=== PATIENT | female | born 1985 | race Caucasian/White ===

== ENCOUNTER 2023-10-20 01:08 | Observation (INO) ==
[2023-10-20 01:19] VITALS: BMI 42.0
--- NOTE | 2023-10-20 02:03 | ED.ABDFE ---
HPI Time Seen Time Seen by Provider: 10/20/23 02:02 PCP Primary Care Physician: isaac HPI Comment HPI Comment: Fever, chills, cough times one week. Abdominal pain, vomiting and rib pain that started today. Complaint Doctors Chief Complaint Comments: Patient is 38yr old female in ER with fever, cough and chills times one week. Now patient having rib pain, nausea and vomiting. denies diarrhea and dysuria. Patient is weak and tired and abdomen is turning. she is worse tonight. Chief Complaint:: pt states she has been sick for about a week with fever, chills, and coughing, today her chest/ribs started to hurt and she started having abdominal pain.She states it feels like her stomach is turning.She has been vomiting today. Self Treatment fo Chief Complaint: [email or web address] COVID-19 Coronavirus risk:travel/contact w/high risk person: No Has patient experienced Coronavirus symptoms: No Reviewed Nurses Notes Review: Yes Source History Provided: Patient Mode of arrival Mode of Arrival: Ambulatory Timing Onset of Chief Complaint: 10/20/23 PMH PMH Past Medical History: No Past Surgical History: Yes Surgical History: and Cholecystectomy Family History History of Family Medical Conditions: Yes Family Medical History: Diabetes Mellitus, Cancer, [place], Coronary Artery Disease, Heart Failure and Hypertension Social History Type of Tobacco Use: None Alcohol Use: None Do you use any recreational Drugs:: No Lives With: Spouse Lives Where: Home Travel Risk Coronavirus risk:travel/contact w/high risk person: No Has patient experienced Coronavirus symptoms: No Infectious screening In the last 2 months have you had wt loss of >10#?: NO Have you had fever, night sweats or hemotysis?: No Have you traveled outside the country in the last 6 months?: No Isolation: Standard ROS Review of Systems Constitutional: Weakness and Fatigue; negative Fever Eyes: No Symptoms Reported ENTM: No Symptoms Reported; negative Nose Discharge or Nose Congestion Respiratoy: Moist Cough; negative Short of Breath or Wheezing Cardiovascular: No Symptoms Reported; negative Chest Pain Gastrointestinal/Abdominal: Abdominal Pain, Nausea and Vomiting Genitourinary: No Symptoms Reported; negative Dysuria Neurological: Weakness; negative Headache or Dizziness Musculoskeletal: No Symptoms Reported; negative Muscle Pain Integumentary: Dryness; negative Rash or Juandice Hematologic/Lymphatic: No Symptoms Reported Endocrine: Increased Thirst; negative Increased Urine Psychiatric: No Symptoms Reported All Other Systems: Reviewed and Negative PE Vital Signs Vitals: Vital Signs Temperature 97.5 F Pulse Rate 89 Pulse Rate 133 Respiratory Rate 22 Respiratory Rate 22 Respiratory Rate 20 Blood Pressure 114/59 Blood Pressure 137/85 O2 Sat by Pulse Oximetry 94 O2 Sat by Pulse Oximetry 96 General Limitations: No Limitations General Appearance: Alert and In No Apparent Distress Head Head Exam: Normal Inspection Eyes Eye exam: Normal Appearance; negative Scleral Icterus or Conjunctival Injection ENT ENT Exam: Normal Exam, Normal Oropharynx, Normal External Ear Exam and TM's Normal Bilaterally Neck Neck Exam: Normal Inspection and Trachea Midline; negative Tenderness Chest Chest Inspection: Normal Inspection and Symmetric Chest Wall Rise; negative Ten derness Respiratory Respiratory Exam: Normal Lung Sounds Bilat and Accessory Muscle Use; negative Chest Wall Tenderness Cardiovascular Cardiovascular Exam: Regular Rate, Normal Rhythm and Normal Heart Sounds; negative Systolic Murmur or Diastolic Murmur Abdominal Exam Abdominal Exam: Normal Bowel Sounds, Soft and Tenderness Abdominal Tenderness: Diffuse and Moderate Rectal Rectal Exam: Deferred Back Back Exam: Normal Inspection; negative (R) CVA Tenderness or (L) CVA Tenderness External Exam: Female: Deferred : Speculum Exam (Female): Deferred : Bimanual Exam (female): Deferred Neurologic Neurological Exam: Alert and Oriented X3; negative Motor Sensory Deficit Psychiatric Psychiatric Exam: Normal Affect and Normal Mood Skin Skin Exam: Warm and Dry MDM Differential Diagnosis Differential Diagnosis- Considerations may include:: Bowel Obstruction, Constipation, Diverticular disease, Gastroenteritis, Inflammatory BD, Pancreatitis, Trauma, intra-abdominal and Urinary tract infection COURSE Treatment Treatment: See orders done while patient was in ER. Labs and CT discussed. possible early small bowel obstruction. Surgery consult obtained. patient will be admitted to hospital for further evaluation. Consultation Consultation Comments: Surgery consult to Dr. PULIDO. He will admit patient. Education/Counseling Education/Counseling: Patient and Family Educated On: Diagnosis ROR Labs Reviewed Laboratory Results Reviewed?: Yes 10/20/23 02:30 10/20/23 02:30 Laboratory: WBC 13.5 X10^3/uL (3.6-10.0) H 10/20/23 02:30 RBC 4.42 X10^6/uL (3.5-5.4) 10/20/23 02:30 Hgb 13.7 g/dL (12.0-16.0) 10/20/23 02:30 Hct 40.7 % (36.0-47.0) 10/20/23 02:30 MCV 92.0 fL (80.0-100.0) 10/20/23 02:30 MCH 31.0 pg (27.0-34.0) 10/20/23 02:30 MCHC 33.7 g/dL (33.0-35.0) 10/20/23 02:30 RDW 13.2 % (11.6-16.5) 10/20/23 02:30 Plt Count 241 X10^3/uL (150.0-450.0) 10/20/23 02:30 MPV 8.6 fL (7.4-11.0) 10/20/23 02:30 Neut % (Auto) 82.7 % (42.0-75.0) H 10/20/23 02:30 Lymph % (Auto) 8.5 % (21.0-51.0) L 10/20/23 02:30 [place] % (Auto) 8.2 % (0.0-13.0) 10/20/23 02:30 Eos % (Auto) 0.4 % (0.9-2.9) L 10/20/23 02:30 Baso % (Auto) 0.2 % (0.2-1.0) 10/20/23 02:30 Neut # (Auto) 11.2 x10^3/uL (2.2-4.8) H 10/20/23 02:30 Lymph # (Auto) 1.1 X10^3/uL (1.3-2.9) L 10/20/23 02:30 [place] # (Auto) 1.1 x10^3/uL (0.3-0.8) H 10/20/23 02:30 Eos # (Auto) 0.1 x10^3/uL (0.0-0.2) 10/20/23 02:30 Baso # (Auto) 0.0 X10^3/uL (0.0-0.1) 10/20/23 02:30 Absolute Nucleated RBC 0.0 /100WBC 10/20/23 02:30 Sodium 143 mmol/L (136-145) 10/20/23 02:30 Corrected Sodium 144 mmol/L (136-145) 10/20/23 02:30 Potassium 3.9 mmol/L (3.5-5.1) 10/20/23 02:30 Chloride 106 mmol/L (98-107) 10/20/23 02:30 Carbon Dioxide 23.8 mmol/L (21-32) 10/20/23 02:30 BUN 13 mg/dL (7-18) 10/20/23 02:30 Creatinine 0.82 mg/dL (0.55-1.02) 10/20/23 02:30 Est GFR (MDRD) Af Amer > 60 (>60) 10/20/23 02:30 Est GFR (MDRD) Non-Af > 60 (>60) 10/20/23 02:30 Glucose 131 mg/dL (65-99) H 10/20/23 02:30 Calcium 8.2 mg/dL (8.5-10.1) L 10/20/23 02:30 Corrected Calcium 8.8 mg/dL (8.5-10.1) 10/20/23 02:30 Total Bilirubin 0.30 mg/dL (0.2-1.0) 10/20/23 02:30 AST 85 Units/L (15-37) H 10/20/23 02:30 ALT 76 Units/L (12-78) 10/20/23 02:30 Alkaline Phosphatase 80 Units/L (46-116) 10/20/23 02:30 Creatine Kinase 38 Units/L (26-192) 10/20/23 02:30 Troponin I High Sens < 4.0 ng/L (4.0-60.0) L 10/20/23 02:30 Total Protein 6.9 g/dL (6.4-8.2) 10/20/23 02:30 Albumin 3.3 g/dL (3.4-5.0) L 10/20/23 02:30 Globulin 3.6 g/dL (2.5-4.5) 10/20/23 02:30 Albumin/Globulin Ratio 0.9 Ratio (1.1-2.1) L 10/20/23 02:30 Amylase 47 Units/L (25-115) 10/20/23 02:30 Lipase 28 Units/L (16-77) 10/20/23 02:30 Specimen Type Clean catch urine 10/20/23 05:20 Urine Color Yellow (YELLOW) 10/20/23 05:20 Urine Appearance Clear (CLEAR) 10/20/23 05:20 Urine pH 6.0 (5.0 - 8.0) 10/20/23 05:20 Ur Specific [place] 1.020 (1.000-1.030) 10/20/23 05:20 Urine Protein 1+ (NEGATIVE) 10/20/23 05:20 Urine Glucose (UA) Negative (NEGATIVE) 10/20/23 05:20 Urine Ketones Negative (NEGATIVE) 10/20/23 05:20 Urine Blood Negative (NEGATIVE) 10/20/23 05:20 Urine Nitrite Negative (NEGATIVE) 10/20/23 05:20 Urine Bilirubin Negative (NEGATIVE) 10/20/23 05:20 Urine Urobilinogen Normal (NORMAL) 10/20/23 05:20 Ur Leukocyte Esterase Negative (NEGATIVE) 10/20/23 05:20 Urine RBC 0-2 /HPF (0-3) 10/20/23 05:20 Urine WBC 0-2 /HPF (0-5) 10/20/23 05:20 Ur Squamous Epith Cells Many /HPF (NEGATIVE) 10/20/23 05:20 Urine Bacteria 1+ /HPF (NEGATIVE) 10/20/23 05:20 Hyaline Casts Few /LPF (NEGATIVE) 10/20/23 05:20 Urine Mucus Many /HPF (NEGATIVE) 10/20/23 05:20 Ur Culture Indicated? No/not indicated 10/20/23 05:20 SARS-CoV-2 (PCR) Negative (NEGATIVE) 10/20/23 02:40 Influenza Type A (PCR) Negative (NEGATIVE) 10/20/23 02:40 Influenza Type B (PCR) Negative (NEGATIVE) 10/20/23 02:40 RSV (PCR) Negative (NEGATIVE) 10/20/23 02:40 XRAY XRAY Interpreted by: Radiologist (Report noted.) Opioid Opioid Risk Tool Age (Agustin box if 16-45): Yes History of Preadolescent Sexual Abuse: No Total: 1 Total Score Risk Category: Low Risk Copyright: Jacques WATTS predicting aberrant behaviors Discharge Plan Diagnosis Discharge Problem: Enteritis, Bronchitis, Chest wall pain Abdominal pain Qualifiers: Abdominal location: generalized Qualified Code(s): R10.84 - Generalized abdominal pain Discharge Plan Patient Disposition: 09 ADMITTED INPATIENT Condition: Stable Discharge Comment: RETURN TO ER IF WORSE.
[2023-10-20] MEDS ORDERED: DEMEROL INJ ONE (02:33)
[2023-10-20] MEDS ORDERED: ZOFRAN INJ 4 MG VIAL ONE (02:33)
[2023-10-20] MEDS ORDERED: PEPCID 20 MG VIAL ONE (02:33)
[2023-10-20] MEDS ORDERED: NS 1,000 ML IV 1,000 ML ONE (02:33)
[2023-10-20] MEDS ORDERED: NS 50 ML IV 50 ML IV ONE (02:33)
--- NOTE | 2023-10-20 02:37 | EKG ---
Test Reason : CHEST PAIN Blood Pressure : */* mmHG Vent. Rate : 109 BPM Atrial Rate : 109 BPM P-R Int : 124 ms QRS Dur : 78 ms QT Int : 330 ms P-R-T Axes : 53 3 46 degrees QTc Int : 444 ms Sinus tachycardia Possible Left atrial enlargement Minimal voltage criteria for LVH, may be normal variant ( R in aVL ) Borderline ECG No previous ECGs available Confirmed by Charles Martinez ([id number]) on 10/20/2023 7:39:27 AM Referred By: Confirmed By: Charles Martinez
[2023-10-20] MEDS: DEMEROL INJ IVP ONE (02:43)
[2023-10-20] MEDS: PEPCID 20 MG VIAL 20 MG in NS 50 ML IV 50 ML IV ONE ×2 (02:43→04:54)
[2023-10-20] MEDS: ZOFRAN INJ 4 MG VIAL IVP ONE (02:43)
[2023-10-20] MEDS: NS 1,000 ML IV 1,000 ML IV ONE (02:43)
[2023-10-20 02:48] LABS: BASOPHILS % (AUTO) 0.2 % (0.2-1.0); EOSINOPHILS # (AUTO) 0.1 x10^3/uL (0.0-0.2); EOSINOPHILS % (AUTO) 0.4 % (0.9-2.9); HEMATOCRIT 40.7 % (36.0-47.0); HEMOGLOBIN 13.7 g/dL (12.0-16.0); LYMPHOCYTES # (AUTO) 1.1 X10^3/uL (1.3-2.9); LYMPHOCYTES % (AUTO) 8.5 % (21.0-51.0); MEAN CORPUSCULAR HGB CONC 33.7 g/dL (33.0-35.0); MEAN PLATELET VOLUME 8.6 fL (7.4-11.0); MONOCYTES # (AUTO) 1.1 x10^3/uL (0.3-0.8); MONOCYTES % (AUTO) 8.2 % (0.0-13.0); NEUTROPHILS # (AUTO) 11.2 x10^3/uL (2.2-4.8); NEUTROPHILS % (AUTO) 82.7 % (42.0-75.0); PLATELET COUNT 241 X10^3/uL (150.0-450.0); RED BLOOD COUNT 4.42 X10^6/uL (3.5-5.4); RED CELL DISTRIBUTION WIDTH 13.2 % (11.6-16.5); WHITE BLOOD COUNT 13.5 X10^3/uL (3.6-10.0)
[2023-10-20 03:04] LABS: ALANINE AMINOTRANSFERASE 76 Units/L (12-78); ALBUMIN 3.3 g/dL (3.4-5.0); ALKALINE PHOSPHATASE 80 Units/L (46-116); AMYLASE 47 Units/L (25-115); ASPARTATE AMINO TRANSFERASE 85 Units/L (15-37); BLOOD UREA NITROGEN 13 mg/dL (7-18); CALCIUM 8.2 mg/dL (8.5-10.1); CARBON DIOXIDE 23.8 mmol/L (21-32); CHLORIDE 106 mmol/L (98-107); COR CA(FOR HYPOALB) 8.8 mg/dL (8.5-10.1); COR NA(FOR HYPERGLY) 144 mmol/L (136-145); CREATINE KINASE 38 Units/L (26-192); CREATININE 0.82 mg/dL (0.55-1.02); GLUCOSE 131 mg/dL (65-99); LIPASE 28 Units/L (16-77); POTASSIUM 3.9 mmol/L (3.5-5.1); SODIUM 143 mmol/L (136-145); TOTAL PROTEIN 6.9 g/dL (6.4-8.2); eGFR NON BLACK RACES > 60 (>60)
[2023-10-20] MEDS ORDERED: TORADOL 30 MG VIAL ONE ×2 (04:54→10:50)
[2023-10-20] MEDS: TORADOL 30 MG VIAL IVP ONE (04:59)
[2023-10-20 05:25] LABS: BILIRUBIN,URINE NEGATIVE (NEGATIVE); BLOOD/HEMOGLOBIN,URINE NEGATIVE (NEGATIVE); GLUCOSE, URINE NEGATIVE (NEGATIVE); KETONES,URINE NEGATIVE (NEGATIVE); LEUKOCYTE ESTERASE ,URINE NEGATIVE (NEGATIVE); NITRITES,URINE NEGATIVE (NEGATIVE); PROTEIN,URINE 1+ (NEGATIVE); UROBILINOGEN,URINE NORMAL (NORMAL)
[2023-10-20 05:36] LABS: APPEARANCE,URINE CLEAR (CLEAR); COLOR,URINE YELLOW (YELLOW)
[2023-10-20 05:38] LABS: BACTERIA,URINE 1+ /HPF (NEGATIVE); HYALINE CASTS, URINE FEW /LPF (NEGATIVE); RBC,URINE 0-2 /HPF (0-3); SQUAMOUS EPITHELIAL CELL,UR MANY /HPF (NEGATIVE)
--- NOTE | 2023-10-20 07:12 | CT ---
EXAM:ABDOMEN/PELVIS W/O CONHISTORY:PT C/O ABDOMINAL PAIN, N/V, FEVER, CHEST/RIB PAIN ; SX: HYST, APPY, FUENTES, CSECTIONCOMPARISON:None.TECHNIQUE:Multip le axial images of the abdomen and pelvis were obtained from the lung bases to the pubic symphysis without the administration of IV contrast. Dose reduction techniques including Automated Exposure Control (AEC) and adjustment of mA and kV were utilized.FINDINGS:Limitations: Lack of IV contrast limits evaluation.Consider base The heart normal in size. There is hepatic steatosis. Status post cholecystectomy. Spleen, pancreas, and adrenal glands have a benign noncontrast appearance. Kidneys appear benign in noncontrast appearance without calculus or hydronephrosis. Urinary bladder is mostly decompressed. Status post hysterectomy. Status post appendectomy. Mildly dilated loop of small bowel in the left upper quadrant measures about 2.8 cm AP in luminal diameter image 39 series 3. Most of the small bowel loops are decompressed. Mildly atherosclerotic normal caliber abdominal aorta. Status post ventral hernia repair. There is a fat containing hernia in the low anterior body wall with the sac measuring about 4.8 x 2.2 cm axial image 76 series 3 and about 4.4 cm craniocaudal image 43 series 6. No pathologic adenopathy. No free air, free fluid, or collection. There is fat stranding in the root of the small bowel mesentery image 26 series 5 for example. No acute osseous abnormality. Small subcutaneous nodular areas/lesion measuring 9 mm craniocaudal image 30 series 6 in the left lower quadrant.IMPRESSION:Hepatic steatosis.Mildly dilated loop of small bowel in the left upper quadrant may be incidental/idiopathic. Differential includes enteritis or low-grade obstruction.Fat containing hernia in the low anterior body wall.Nonspecific small nodular area in the subcutaneous skin in the left lower quadrant. This could be sequela of injection but is nonspecific.Fat stranding at the root of the small bowel mesentery can be seen normally or with mesenteritis.THIS IS AN ELECTRONICALLY VERIFIED FINAL REPORT10/20/2023 7:08 AM - Electronically signed by Pramod Oliveira MD
[2023-10-20] MEDS ORDERED: PROTONIX INJ 40 MG VIAL ONE (08:49)
[2023-10-20] MEDS ORDERED: D5 1/2 NS 1,000 ML 1,000 ML IV ONE (08:49)
[2023-10-20] MEDS: PROTONIX INJ 40 MG VIAL IVP SCH (08:53)
[2023-10-20] MEDS: D5 1/2 NS 1,000 ML 1,000 ML IV SCH (08:53)
[2023-10-20] MEDS: TORADOL 30 MG VIAL IVP PRN (10:53)
[2023-10-20 14:05] VITALS: O2SAT 96
[2023-10-20] MEDS: ZOFRAN INJ 4 MG VIAL IVP PRN (14:16)
[2023-10-20 15:47] VITALS: BP 95/54; PULSE 71; RESP 18; TEMP 97.8
== END 2023-10-20 16:50 | disposition left against medical advice (07) ==
LOC: ER 01:08 → U 01:08 → MED/SURG 12:07
PROVIDERS: ADMIT Surgery; ATTEND Surgery
DX: Z53.29 Procedure and treatment not carried out because of patient's decision for other reasons; R07.89 Other chest pain; R10.84 Generalized abdominal pain; R11.2 Nausea with vomiting, unspecified; K56.690 Other partial intestinal obstruction; K66.0 Peritoneal adhesions (postprocedural) (postinfection); Z20.822 Contact with and (suspected) exposure to COVID-19; R00.0 Tachycardia, unspecified; R50.9 Fever, unspecified